=== PATIENT | male | born 1985 | race Caucasian/White ===

== ENCOUNTER → 2016-12-01 | Outpatient (CLI) | payer BC ==
[~2016-12-01] MED LIST: ALLO300T2 PO; HYDR-3454 PO
--- NOTE | 2016-12-01 12:02 | Diagnostic Imaging Report ---
PROCEDURE: US Gallbladder. TECHNIQUE: Multiple real-time grayscale images were obtained over the right upper quadrant in various projections. INDICATION: Right upper quadrant pain. FINDINGS: The pancreas is largely obscured by bowel gas. The liver is fairly homogeneous with no focal lesion seen. It is mildly enlarged measuring 20 CM craniocaudally. Hepatopetal flow in the portal vein is seen. There is no gallbladder wall thickening or pericholecystic fluid. No stones seen. Sonographic Little sign is reportedly negative. The CBD is 4 mm in caliber. The right kidney is 11.5 CM in length with no hydronephrosis or focal lesion. No fluid collection in the upright abdomen is seen. IMPRESSION: No gallstones or evidence of cholecystitis. Mild hepatomegaly. Dictated by: Dictated on workstation # [id number]
== END ==
LOC: RAD 08:41
PROVIDERS: ATTEND Surgery
DX: R10.11 Right upper quadrant pain (principal)
CPT/HCPCS: 76705

== ENCOUNTER → 2018-04-02 | Outpatient (CLI) | payer BC ==
[~2018-04-02] MED LIST changes: +CATHETER FLUSH 10 ML SYR IV PRN
--- NOTE | 2018-04-02 19:01 | Diagnostic Imaging Report ---
INDICATION: Right upper quadrant pain. Patient was administered 5.2 mCi technetium 99m Choletec intravenously and imaging over the abdomen was performed. At 60 minutes, patient ingested 8 ounces of Ensure and a gallbladder ejection fraction was calculated. There is homogeneous uptake of activity by the liver with prompt excretion of activity into the gallbladder and common duct. Normal passage of activity into small bowel is seen. Gallbladder ejection fraction is abnormally low at 16%. Normal values are 33% or greater. IMPRESSION: 1. No evidence of cystic duct or common bile duct obstruction. 2. Abnormally low gallbladder ejection fraction of 16%. Dictated by: Dictated on workstation # [id number]
== END ==
LOC: CARD 12:29
PROVIDERS: ATTEND Internal Medicine
DX: R10.11 Right upper quadrant pain (principal); K82.8 Other specified diseases of gallbladder
CPT/HCPCS: 78227

== ENCOUNTER 2018-05-07 05:31 | Outpatient (CLI) | payer BC ==
[~2018-05-07] VITALS: Ht 200.7 cm; Wt 150.6 kg
[~2018-05-07 05:31] MED LIST changes: -CATHETER FLUSH 10 ML SYR IV PRN
== END 2018-05-07 10:14 ==
LOC: PREOP 05:31
PROVIDERS: ATTEND Surgery
DX: Z01.818 Encounter for other preprocedural examination (principal)

== ENCOUNTER 2018-05-10 05:58 | Day surgery (SDC) | payer BC ==
[~2018-05-10] VITALS: Ht 200.7 cm; Wt 149.2 kg
[2018-05-10] VITALS (7 sets, daily range): BP systolic 127–140; BP diastolic 58–91
--- OUTSIDE RECORDS SUMMARY | 2018-05-10 06:02 | XMS REPORT | Continuity of Care Document ---
Author Author [facility] Organization [facility] Address Unknown Phone Unavailable Allergies Active Description Code Type Severity Reaction Onset Reported/Identified Relationship to Patient Clinical Status Yes NSAIDS (Non-Steroidal Anti-Inflamma [id number] Drug Allergy Unknown N/A Medications There is no data. Problems Date Dx Coded Attending Type Code Diagnosis Diagnosed By 02/27/2014 THOMAS GROVER MD Ot 327.23 OBSTRUCTIVE SLEEP APNEA (ADULT) (PEDIATR 02/27/2014 THOMAS GROVER MD Ot 401.9 HYPERTENSION NOS 07/31/2014 KAUSHIK VITALE DO Ot 706.2 SEBACEOUS CYST 02/09/2015 KAUSHIK VITALE DO Ot 706.2 02/09/2015 KAUSHIK VITALE DO Ot V72.84 02/09/2015 STEVEN EBRG MD Ot 274.9 02/09/2015 STEVEN BERG MD Ot 780.57 02/09/2015 STEVEN BERG MD Ot V58.69 02/09/2015 TIN ENG APRN Ot F17.210 NICOTINE DEPENDENCE, CIGARETTES, UNCOMPL 02/09/2015 TIN ENG APRN Ot S06.0X0A CONCUSSION WITHOUT LOSS OF CONSCIOUSNESS 02/09/2015 TIN ENG APRN Ot W22.09XA STRIKING AGAINST OTHER STATIONARY OBJECT 02/09/2015 TIN ENG APRN Ot Y92.[address] IN SINGLE-FAMILY (PRIVATE) HO 02/09/2015 TIN ENG APRN Ot Y99.8 OTHER EXTERNAL CAUSE STATUS 10/01/2015 KAUSHIK VITALE DO Ot 706.2 SEBACEOUS CYST 10/01/2015 KAUSHIK VITALE DO Ot V72.84 EXAM PRE-OPERATIVE NOS 10/01/2015 STEVEN BERG MD Ot 274.9 GOUT NOS 10/01/2015 STEVEN BERG MD Ot 780.57 UNSPECIFIED SLEEP APNEA 10/01/2015 STEVEN BERG MD Ot V58.69 OTH MED,LT,CURRENT USE 01/10/2016 KAUSHIK VITALE DO Ot 706.2 SEBACEOUS CYST 01/10/2016 KAUSHIK VITALE DO Ot V72.84 EXAM PRE-OPERATIVE NOS 01/10/2016 STEVEN BERG MD Ot 274.9 GOUT NOS 01/10/2016 STEVEN BERG MD Ot 780.57 UNSPECIFIED SLEEP APNEA 01/10/2016 STEVEN BERG MD Ot V58.69 OTH MED,LT,CURRENT USE 12/14/2016 KAUSHIK VITALE DO Ot R10.11 RIGHT UPPER QUADRANT PAIN 06/01/2017 KAUSHIK VITALE DO Ot 706.2 SEBACEOUS CYST 06/01/2017 KAUSHIK VITALE DO Ot V72.84 EXAM PRE-OPERATIVE NOS 06/01/2017 STEVEN BERG MD Ot 274.9 GOUT NOS 06/01/2017 STEVEN BERG MD Ot 780.57 UNSPECIFIED SLEEP APNEA 06/01/2017 STEVEN BERG MD Ot V58.69 OTH MED,LT,CURRENT USE 04/02/2018 KAUSHIK VITALE DO Ot R10.11 RIGHT UPPER QUADRANT PAIN 04/04/2018 SIERRA DO, SAMANTHA Ot K82.8 OTHER SPECIFIED DISEASES OF GALLBLADDER 04/04/2018 SIERRA DO, SAMANTHA Ot R10.11 RIGHT UPPER QUADRANT PAIN 04/08/2018 SIERRA DO, SAMANTHA Ot K82.8 OTHER SPECIFIED DISEASES OF GALLBLADDER 04/08/2018 SIERRA DO, SAMANTHA Ot R10.11 RIGHT UPPER QUADRANT PAIN 04/17/2018 SIERRA DO, SAMANTHA Ot K82.8 OTHER SPECIFIED DISEASES OF GALLBLADDER 04/17/2018 SIERRA DO, SAMANTHA Ot R10.11 RIGHT UPPER QUADRANT PAIN 05/08/2018 KAUSHIK VITALE DO Ot Z01.818 ENCOUNTER FOR OTHER PREPROCEDURAL EXAMIN Procedures There is no data. Results There is no data. Encounters ACCT No. Visit Date/Time Discharge Status Pt. Type Provider Facility Loc./Unit Complaint [id number] 05/07/2018 05:31:00 05/07/2018 10:14:00 DIS Outpatient KAUSHIK VITALE DO [facility] PREOP LAPAROSCOPIC CHOLECYSTECTOMY [id number] 04/02/2018 12:29:00 04/02/2018 23:59:59 CLS Outpatient SAMANTHA SIERRA DO [facility] CARD RUQ ABD PAIN [id number] 12/09/2016 10:00:00 12/09/2016 23:59:59 CLS Preadmit SAMANTHA SIERRA DO [facility] CARD RUQ PAIN [id number] 12/01/2016 08:41:00 12/01/2016 23:59:59 CLS Outpatient KAUSHIK VITALE DO [facility] RAD RUQ PAIN [id number] 02/09/2015 16:30:00 02/09/2015 18:00:00 DIS Emergency TIN ENG APRN [facility] ER HEAD INJURY/HEADACHES [id number] 07/31/2014 06:13:00 07/31/2014 23:59:59 CLS Outpatient STEVEN BERG MD [facility] LAB GOUT,ALF MED USE [id number] 07/31/2014 06:09:00 07/31/2014 11:15:00 DIS Outpatient KAUSHIK VITALE DO [facility] SDC CYST LEFT POSTERIOR NECK [id number] 07/28/2014 08:22:00 07/28/2014 23:59:59 CLS Outpatient KAUSHIK VITALE DO [facility] PREOP CYST LEFT POSTERIOR NECK [id number] 02/26/2014 21:03:00 02/27/2014 06:14:00 DIS Outpatient LENORE LEIGH, THOMAS Thomas [facility] SLEEP SNORING,HTN,OSIEL [id number] 05/10/2018 05:58:00 ACT Outpatient KAUSHIK VITALE DO [facility] SDC BILIARY DYSKENESIA
[2018-05-10] MEDS ORDERED: ceFAZolin 2 GM IV Premixed 50 ML IV ONE (06:15)
[2018-05-10] MEDS ORDERED: CATHETER FLUSH 10 ML SYR IV PRN (06:45)
[2018-05-10] MEDS: LACTATED RINGERS 1,000 ML IV PRN ×2 (07:00→09:00)
[2018-05-10] MEDS ORDERED: BUP/EPI 0.5% 1:200,000 (SENSORCAINE) 30 ML VIAL ONE (07:11)
[2018-05-10] MEDS ORDERED: LIDOCAINE 1% INJ 20 ML 20 ML VIAL ONE (07:11)
[2018-05-10] MEDS ORDERED: IOPAMIDOL 61% 30 ML (ISOVUE 300) VIAL IV ONE (07:11)
[2018-05-10] MEDS ORDERED: MIDAZOLAM 2 MG/2 ML (VERSED) VIAL ONE (07:14)
[2018-05-10] MEDS ORDERED: fentaNYL INJECTION 100 MCG/2 ML AMP ONE (07:14)
[2018-05-10] MEDS ORDERED: LIDOCAINE PF 2% 5 ML (XYLOCAINE) VIAL ONE (07:14)
[2018-05-10] MEDS ORDERED: proPOfol 200 MG/20 ML (DIPRIVAN) VIAL IV ONE (07:14)
[2018-05-10] MEDS ORDERED: ROCURONIUM 10 MG/ML 5 ML SYRINGE IV ONE ×2 (07:14→08:48)
[2018-05-10 07:20] LABS: BASOPHILS % (AUTO) 0 % (0-10); EOSINOPHILS % (AUTO) 1 % (0-10); HEMATOCRIT 43 % (40-54); HEMOGLOBIN 15.1 G/DL (13.3-17.7); LYMPHOCYTES # (AUTO) 2.8 X 10^3 (1.0-4.0); LYMPHOCYTES % (AUTO) 38 % (12-44); MEAN CORPUSCULAR HEMOGLOBIN 28 PG (25-34); MEAN CORPUSCULAR HGB CONC 35 G/DL (32-36); MEAN CORPUSCULAR VOLUME 80 FL (80-99); MEAN PLATELET VOLUME 10.3 FL (7.4-10.4); MONOCYTES # (AUTO) 0.8 X 10^3 (0.0-1.0); MONOCYTES % (AUTO) 11 % (0-12); NEUTROPHILS # (AUTO) 3.6 X 10^3 (1.8-7.8); NEUTROPHILS % (AUTO) 50 % (42-75); PLATELET COUNT 189 10^3/uL (130-400); RED CELL DISTRIBUTION WIDTH 13.2 % (10.0-14.5); WHITE BLOOD COUNT 7.3 10^3/uL (4.3-11.0)
[2018-05-10] MEDS ORDERED: SEVOFLURANE (ULTANE) 15 ML INHAL SOLN ONE ×4 (07:20→10:00)
[2018-05-10] MEDS ORDERED: ONDANSETRON 4 MG/2 ML (SDV) Z0FRAN ONE (07:20)
[2018-05-10] MEDS ORDERED: DEXAMETHASONE 10 MG/ML (DECADRON) 1 ML VIAL ONE (07:20)
--- NOTE | 2018-05-10 08:07 | Progress Note-Pre Operative ---
Pre-Operative Progress Note H&P Reviewed The H&P was reviewed, patient examined and no changes noted. Date Seen by Provider: May 10, 2018 Time Seen by Provider: 08:05 Date H&P Reviewed: May 10, 2018 Time H&P Reviewed: 08:05 Pre-Operative Diagnosis: biliary dyskinesia KAUSHIK VITALE DO May 10, 2018 08:07
[2018-05-10] MEDS ORDERED: LACTATED RINGERS 1,000 ML IV ONE (09:03)
--- NOTE | 2018-05-10 09:45 | Progress Note-Post Operative ---
Post-Operative Progess Note Surgeon (s)/[employer]person [employer] (s) Surgeon KAUSHIK VITALE DO [employer]: Dr. Butler Pre-Operative Diagnosis biliary dyskinesia Post-Operative Diagnosis same Procedure & Operative Findings Date of Procedure 05/10/18 Procedure Performed/Findings lap yumiko c ioc Anesthesia Type gen Estimated Blood Loss Estimated blood loss (mL): min Specimens/Packing Specimens Removed gallbladder KAUSHIK VITALE DO May 10, 2018 09:44
[2018-05-10] MEDS ORDERED: ACHD5005 PO (09:46)
[2018-05-10] MEDS ORDERED: DOCU-143 PO (09:46)
--- NOTE | 2018-05-10 09:47 | Discharge Inst-Simple/Standard ---
Discharge Inst-Standard Discharge Medications New, Converted or Re-Newed RX: RX on Chart Patient Instructions/Follow Up Plan of Care/Instructions/FU: 2 weeks Anna Activity as Tolerated: No Discharge Diet: Regular Diet Other Inst to Patient Follow up Appt: Make appointment for 2 weeks. Instructions: No lifting greater than 10 pounds. No strenuous activity. May shower in 24 hours, no tub bath or soaking. Use incentive spirometer at home as directed. No Smoking Skin/Wound Care: May remove bandages. You need to leave the white strips over incision on they will fall off on their own. Symptoms to Report: Appetite Changes, Extremity Discoloration, Numbness/Tingling, Swelling Increased , Bleeding Excessive, Eyesight Changes, Pain Increased, Urine Color Change, Constipation(Persistent), Fever over 101 degree F, Pain/Pressure in chest, Urinating Difficulty, Cough Up/Vomit Blood, Heart Beat Irreg/Pounding, Pain/ Pressure in jaw, Vaginal Bleeding Increase, Cramps in feet or legs, Lightheadedness, Pain/Pressure in shoulder, Diarrhea(Persistent), Memory Changes Suddenly, Questions/Concerns, Weight gain consecutive days, Dizziness/ Fainting, Nausea/Vomiting, Shortness of Breath, Weight gain over 2 pounds. If eyes or skin turn yellow notify physician. If questions or concerns contact your physician Or seek help at emergency department. KAUSHIK VITALE DO May 10, 2018 09:47
[2018-05-10] MEDS ORDERED: HYDROcodone/APAP 5 MG/325 MG (LORTAB) TAB PO PRN (10:00)
[2018-05-10] MEDS ORDERED: morphine INJ 10 MG/ML 1ML (SYR OR VIAL) ONE (10:08)
[2018-05-10] MEDS ORDERED: HYDROmorphone 2 MG/ML VIAL (DILAUDID) IV ONE (10:15)
[2018-05-10] MEDS ORDERED: MEPERIDINE (DEMEROL) INJ 50 MG/ML IVP ONE (10:15)
[2018-05-10] MEDS ORDERED: morphine INJ 10 MG/ML 1ML (SYR OR VIAL) IVP ONE (10:15)
[2018-05-10] MEDS ORDERED: ONDANSETRON 4 MG/2 ML (SDV) Z0FRAN IVP PRN (10:15)
[2018-05-10] MEDS ORDERED: PROMETHAZINE INJ 25 MG/ML (PHENERGAN) AMP IVP ONE (10:15)
--- NOTE | 2018-05-10 12:19 | OPERATIVE REPORT ---
DATE OF SERVICE: 05/10/2018 PREOPERATIVE DIAGNOSIS: Biliary dyskinesia. POSTOPERATIVE DIAGNOSIS: Biliary dyskinesia. PROCEDURE: Laparoscopic cholecystectomy with intraoperative cholangiogram. SURGEON: Kaushik Castillo DO CLOTH SHRINKING TESTER: Dr. Butler, assisted in retraction, dissection and closure. ANESTHESIA: General. ESTIMATED BLOOD LOSS: Minimal. COMPLICATIONS: None. INDICATIONS: The patient is a 32-year-old male with abdominal pain in epigastric right upper quadrant area. He had a workup, which demonstrating his ejection fraction to be consistent with biliary dyskinesia. He understands risks and benefits of procedure and wished to proceed with procedure. Consent was signed in the chart. DESCRIPTION OF PROCEDURE: The patient was taken to the operating suite. He was prepped and draped in sterile fashion. Timeout was performed. Local anesthetic was infiltrated before incisions and a 12 mm incision was made just superior to the umbilicus. Dissection was taken down to the fascia, which was then scored, grasped and elevated and her abdomen was then entered. A balloon trocar was inserted and pneumoperitoneum was achieved. Under direct visualization of the laparoscope, a 5 mm trocar was then placed in subxiphoid region and two 5 mm trocars were placed in the right upper quadrant. Gallbladder was grasped, elevated and the cystic duct was then dissected around and also the cystic artery. Clips were placed on the proximal and distal portion of the cystic artery and this was then transected. A clip was placed on the distal portion of the cystic duct and this was partially transected. Arrow catheter was inserted into the duct and cholangiogram was performed. There were no filling defects. Contrast made its way into the duodenum without difficulty. Catheter was removed. Clips were placed on the proximal portion of the cystic duct and this was then transected. Hook cautery used to dissect gallbladder from the gallbladder fossa. There was a posterior branch, which clips were placed proximally and distally and this was transected as well. The colon was continued to be dissected off of the liver with hook cautery achieving hemostasis. Once removed, it was placed in an Endobag and removed through the 12 mm trocar site. The abdomen was then irrigated with copious amounts of irrigation and suctioned. The abdomen was then desufflated, the trocars removed. The 12 mm fascial defect was then closed using 0 Vicryl with a nnaadl-kl-dryat fashion. The skin was then closed using 4-0 Monocryl in a subcuticular fashion. The abdomen was then washed and dried and Skin Affix was placed over the incisions. The patient tolerated procedure well without any complications. He was taken to recovery room in stable condition. Job ID: [id number] DocumentID: [id number] Dictated Date: 05/10/2018 09:58:57 [employer] Technician Date: 05/10/2018 12:18:51 Dictated By: KAUSHIK CASTILLO DO
--- NOTE | 2018-05-10 13:29 | Anesthesia-General Post-Op ---
General Patient Condition Mental Status/LOC: Same as Preop Cardiovascular: Satisfactory Nausea/Vomiting: Absent Respiratory: Satisfactory Pain: Controlled Complications: Absent Post Op Complications Complications None Follow Up Care/Instructions Patient Instructions None needed. Anesthesia/Patient Condition Patient Condition Patient is doing well, no complaints, stable vital signs, no apparent adverse anesthesia problems. No complications reported per nursing. SALIMA SIMMONS CRNA May 10, 2018 13:29
--- NOTE | 2018-05-10 16:55 | Diagnostic Imaging Report ---
INDICATION: Gallbladder disease FINDINGS: Intraoperative cholangiogram demonstrates normal caliber of the intrahepatic and extrahepatic biliary ducts. No intrinsic or extrinsic filling defects are appreciated. There is free spill of contrast into the duodenum. There is no pathological extravasation of contrast. IMPRESSION: Unremarkable intraoperative cholangiogram status post cholecystectomy. Please correlate with the formal operative report. Dictated by: Dictated on workstation # [id number]
== END 2018-05-10 14:30 | disposition home or self-care (01) ==
LOC: SDC 05:58
PROVIDERS: ATTEND Surgery
DX: K81.1 Chronic cholecystitis (principal); G47.33 Obstructive sleep apnea (adult) (pediatric); E66.9 Obesity, unspecified; Z68.37 Body mass index [BMI] 37.0-37.9, adult; Z87.891 Personal history of nicotine dependence; Z79.899 Other long term (current) drug therapy
CPT/HCPCS: 36415; 85025; 87081; 94664